=== PATIENT | female | born 1935 | race Caucasian/White ===

== ENCOUNTER 2019-08-31 11:21 | Day surgery (SDC) | payer MEDICARE, OTHER ==
[2019-08-30 11:23] LABS: BASOPHILS # (AUTO) 0.1 X10'3 (0-0.2); BASOPHILS % (AUTO) 0.4 % (0-1); EOSINOPHILS # (AUTO) 0.1 X10'3 (0-0.9); EOSINOPHILS % (AUTO) 0.3 % (0-6); HEMATOCRIT 41.5 % (35.0-45.0); HEMOGLOBIN 13.4 g/dl (12.0-16.0); LYMPHOCYTES # (AUTO) 7.1 X10'3 (1.1-4.8); LYMPHOCYTES % (AUTO) 47.4 % (21-51); MEAN CORPUSCULAR HEMOGLOBIN 29.5 PG (27.0-31.0); MEAN CORPUSCULAR HGB CONC 32.4 g/dL (33.0-36.5); MEAN CORPUSCULAR VOLUME 91.1 FL (78-98); MEAN PLATELET VOLUME 13.7 FL (7.4-10.4); MONOCYTES # (AUTO) 1.1 X10'3 (0-0.9); NEUTROPHILS # (AUTO) 6.8 X10'3 (1.8-7.7); NEUTROPHILS % (AUTO) 44.9 % (42-75); RED BLOOD COUNT 4.55 X10'6 (4.20-5.60); WHITE BLOOD COUNT 15.1 X10'3 (4.5-11.0)
[2019-08-30 11:35] LABS: ALBUMIN 3.3 G/DL (3.4-5.0); ANION GAP 7 (8-16); BLOOD UREA NITROGEN 24 MG/DL (7-18); CALCIUM 9.3 MG/DL (8.5-10.1); CHLORIDE 102 MMOL/L (99-107); CREATININE 1.09 MG/DL (0.40-0.90); GLUCOSE 78 MG/DL (70-104); POTASSIUM 3.4 MMOL/L (3.5-5.1); SODIUM 138 MMOL/L (135-145); TOTAL CARBON DIOXIDE 29.3 MMOL/L (24-32); eGFR 48 ML/MIN
[2019-08-30 11:44] LABS: LARGE PLATELETS FEW; PLATELET COUNT 134 X10'3 (140-440); PLATELET ESTIMATE NORMAL
[~2019-08-31] VITALS: Ht 175.3 cm; Wt 91.4 kg
[2019-08-31] VITALS (8 sets, daily range): BP systolic 131–167; BP diastolic 67–94
[2019-08-31] MEDS ORDERED: morphine 10mg/ml inj. IV ONE (11:45)
[2019-08-31] MEDS ORDERED: atropine 0.1mg/ml 10ml syringe IV ONE (11:45)
[2019-08-31] MEDS ORDERED: normal saline 1000ml 1,000 ML IV SCH (11:45)
[2019-08-31] MEDS ORDERED: amiodarone 150mg/dext, iso-os 100 ML IV ONE (11:45)
[2019-08-31] MEDS ORDERED: LORazepam 0.5 MG tablet PO ONE (11:45)
[2019-08-31] MEDS ORDERED: MIDAZolam 1mg/ml 10ml vial IV ONE (11:45)
[2019-08-31] MEDS ORDERED: METF500T PO (12:02)
[2019-08-31] MEDS ORDERED: ATOR40TA PO (12:02)
[2019-08-31] MEDS ORDERED: OMEP40CA13 PO (12:02)
[2019-08-31] MEDS ORDERED: TRIA1TAB3 PO (12:02)
[2019-08-31] MEDS ORDERED: NITR50CA PO (12:02)
[2019-08-31] MEDS ORDERED: ALLO100T PO (12:02)
[2019-08-31] MEDS ORDERED: APIX5TAB3 PO (12:02)
[2019-08-31] MEDS ORDERED: CARSR60C PO (12:02)
[2019-08-31] MEDS ORDERED: AMIO200T61 PO (12:02)
[2019-08-31] MEDS ORDERED: LEVO100T PO (12:02)
[2019-08-31] MEDS ORDERED: IBRU140C PO (12:02)
== END 2019-08-31 16:15 | disposition home or self-care (01) ==
LOC: SSTAY O 11:21
PROVIDERS: ATTEND Internal Medicine Cardiovascular Disease
DX: I48.19 Other persistent atrial fibrillation (principal); I10 Essential (primary) hypertension; E78.5 Hyperlipidemia, unspecified; E03.9 Hypothyroidism, unspecified; E11.9 Type 2 diabetes mellitus without complications; Z86.718 Personal history of other venous thrombosis and embolism; Z98.890 Other specified postprocedural states; Z79.01 Long term (current) use of anticoagulants; Z79.899 Other long term (current) drug therapy; Z87.891 Personal history of nicotine dependence; Z80.0 Family history of malignant neoplasm of digestive organs; Z82.3 Family history of stroke
CPT/HCPCS: 36415; 80048; 82948; 85025; 85610; 92960; 93005; 94760; J2250; J2270; J7030

== ENCOUNTER 2019-10-31 11:45 | Emergency (ER) | payer MEDICARE, OTHER ==
[~2019-10-31] VITALS: Ht 175.3 cm; Wt 91.8 kg
[~2019-10-31 11:45] MED LIST: ALLO100T PO; AMIO200T61 PO; APIX5TAB3 PO; ATOR40TA PO; CARSR60C PO; IBRU140C PO; LEVO100T PO; METF500T PO; NITR50CA PO; OMEP40CA13 PO; TRIA1TAB3 PO
[2019-10-31 12:01] VITALS: BP 128/77
[2019-10-31] MEDS ORDERED: sulfamethoxazole/trimethoprim DS (800/160mg) tablet PO ONE (12:35)
[2019-10-31] MEDS ORDERED: acetaminophen 325mg tablet PO ONE (12:35)
[2019-10-31] MEDS ORDERED: ondansetron 4mg rapidly disintigrating tab PO ONE (12:35)
--- NOTE | 2019-10-31 13:05 | NUR ---
US AT BEDSIDE
[2019-10-31] MEDS ORDERED: SULF1TAB49 PO (13:49)
--- NOTE | 2019-10-31 14:09 | NUR ---
pts daughter called to come milk pickup driver mark [phone]
== END 2019-10-31 14:09 | disposition home or self-care (01) ==
LOC: ER 11:46
DX: L03.116 Cellulitis of left lower limb (principal); Z79.01 Long term (current) use of anticoagulants; Z79.899 Other long term (current) drug therapy
CPT/HCPCS: 93971; 99284

== ENCOUNTER 2019-11-28 00:51 | Emergency (ER) | payer MEDICARE, OTHER ==
[~2019-11-28] VITALS: Ht 175.3 cm; Wt 91.0 kg
[2019-11-28 00:53] VITALS: BP 169/67
[2019-11-28] MEDS ORDERED: LIDOcaine 2% 10ml TOPICAL JELLY (Urojet) MM ONE (01:25)
--- NOTE | 2019-11-28 02:31 | NUR ---
Pt readied for digital extraction by provider. Urojet used in rectum for relief of discomfort.
--- NOTE | 2019-11-28 02:33 | NUR ---
Soap suds enema administered; pt sitting on commode.
[2019-11-28] MEDS ORDERED: BISA10SU60 RC (02:55)
[2019-11-28] MEDS ORDERED: POLY17PO10 PO (02:55)
[2019-11-28] MEDS ORDERED: polyethylene glycol 3350 17gm powd pack PO ONE (03:00)
[2019-11-28] MEDS ORDERED: polyethylene glycol 3350 17gm powd pack PO SCH (21:00)
== END 2019-11-28 03:38 | disposition home or self-care (01) ==
LOC: ER 00:51
DX: K59.00 Constipation, unspecified (principal); R11.0 Nausea; Z79.01 Long term (current) use of anticoagulants; Z79.899 Other long term (current) drug therapy
CPT/HCPCS: 99284

== ENCOUNTER 2019-12-07 10:14 | Day surgery (SDC) | payer MEDICARE, OTHER ==
[2019-12-06 13:48] LABS: BASOPHILS # (AUTO) 0.1 X10'3 (0-0.2); EOSINOPHILS # (AUTO) 0.1 X10'3 (0-0.9); EOSINOPHILS % (AUTO) 0.5 % (0-6); HEMATOCRIT 39.4 % (35.0-45.0); HEMOGLOBIN 12.8 g/dl (12.0-16.0); MEAN CORPUSCULAR HEMOGLOBIN 30.6 PG (27.0-31.0); MONOCYTES # (AUTO) 0.9 X10'3 (0-0.9)
[2019-12-06 13:50] LABS: LYMPHOCYTES # (AUTO) 4.6 X10'3 (1.1-4.8); LYMPHOCYTES % (AUTO) 41.7 % (21-51); MEAN CORPUSCULAR HGB CONC 32.5 g/dL (33.0-36.5); MEAN CORPUSCULAR VOLUME 94.3 FL (78-98); MEAN PLATELET VOLUME 13.4 FL (7.4-10.4); MONOCYTES % (AUTO) 7.8 % (2-12); NEUTROPHILS # (AUTO) 5.4 X10'3 (1.8-7.7); PLATELET COUNT 106 X10'3 (140-440); RED BLOOD COUNT 4.18 X10'6 (4.20-5.60); RED CELL DISTRIBUTION WIDTH 16.3 % (11.5-14.5)
[2019-12-06 13:57] LABS: ALBUMIN 3.3 G/DL (3.4-5.0); ANION GAP 10 (8-16); BLOOD UREA NITROGEN 21 MG/DL (7-18); BUN/CREATININE RATIO 18.9 (6.6-38.0); CALCIUM 9.5 MG/DL (8.5-10.1); CHLORIDE 103 MMOL/L (99-107); CREATININE 1.11 MG/DL (0.40-0.90); GLUCOSE 80 MG/DL (70-104); POTASSIUM 3.3 MMOL/L (3.5-5.1); SODIUM 142 MMOL/L (135-145); TOTAL CARBON DIOXIDE 29.3 MMOL/L (24-32); eGFR 47 ML/MIN
[2019-12-06 14:01] LABS: PARTIAL THROMBOPLASTIN TIME 24 SECONDS (22-32)
[2019-12-06 14:32] LABS: PLATELET ESTIMATE DECREASED
[2019-12-06 14:33] LABS: ANISOCYTOSIS 1+
[2019-12-06 14:34] LABS: LARGE PLATELETS FEW
[~2019-12-07] VITALS: Ht 175.3 cm; Wt 90.9 kg
[2019-12-07] VITALS (11 sets, daily range): BP systolic 119–167; BP diastolic 69–98
[~2019-12-07 10:14] MED LIST changes: +BISA10SU60 RC
[2019-12-07] MEDS ORDERED: cefazolin/dext.iso 2gm/50ml 50 ML IV SCH (10:40)
[2019-12-07] MEDS ORDERED: LINA145C PO (12:41)
[2019-12-07] MEDS ORDERED: FURO-150 PO (12:41)
[2019-12-07] MEDS ORDERED: midazolam 2 mg/2 ml injection ONE ×2 (13:53→15:07)
[2019-12-07] MEDS ORDERED: fentaNYL/PF 50MCG/1 ML 2ML syringe ONE ×2 (13:53→15:07)
[2019-12-07] MEDS ORDERED: LIDOcaine 1% W/epiNEPHrine 1:100,000 20ml vial ONE (13:53)
[2019-12-07] MEDS ORDERED: ceFAZolin 2gm in dextrose, iso 50 ML IV ONE (13:53)
[2019-12-07] MEDS ORDERED: ceFAZolin 1000mg inj ONE (13:53)
[2019-12-07] MEDS ORDERED: hydrALAZINE 20mg/ml inj. IV ONE (15:14)
[2019-12-07] MEDS ORDERED: FLU VACC QS2020-21(6MOS UP)/PF 60 MCG/0.5 ML SYRINGE IMVAC ONE (15:35)
[2019-12-07] MEDS ORDERED: HYDROcodone/acetaminophen 5mg/325mg tablet PO PRN (16:10)
[2019-12-07] MEDS ORDERED: HYDROcodone/acetaminophen 10/325mg tab PO PRN (16:10)
[2019-12-07] MEDS ORDERED: normal saline 1000ml 1,000 ML IV ONE (16:20)
[2019-12-07] MEDS ORDERED: vancomycin/NS 1 GM ADD-VANTAGE 250 ML X 1 DOSE IV ONE (16:20)
== END 2019-12-07 20:55 | disposition home or self-care (01) ==
LOC: SSTAY O 10:14
PROVIDERS: ATTEND Internal Medicine Cardiovascular Disease
DX: I49.5 Sick sinus syndrome (principal); I48.19 Other persistent atrial fibrillation; I10 Essential (primary) hypertension; E78.5 Hyperlipidemia, unspecified; Z23 Encounter for immunization; E11.9 Type 2 diabetes mellitus without complications; E03.9 Hypothyroidism, unspecified; Z79.899 Other long term (current) drug therapy; Z79.01 Long term (current) use of anticoagulants; Z85.6 Personal history of leukemia; Z86.718 Personal history of other venous thrombosis and embolism; Z98.890 Other specified postprocedural states; Z87.891 Personal history of nicotine dependence; Z80.0 Family history of malignant neoplasm of digestive organs; Z82.3 Family history of stroke; Z80.1 Family history of malignant neoplasm of trachea, bronchus and lung
CPT/HCPCS: 33208; 36415; 71046; 80048; 85025; 85610; 85730; 93005; 99152; 99153; C1785; C1894; C1898; G0008; J0360; J0690; J2250; J3010; J3370; J7030; Q2039; 85008; A4565; A4620; A6449

== ENCOUNTER 2020-03-28 14:54 | Emergency (ER) | payer MEDICARE, OTHER ==
[~2020-03-28] VITALS: Ht 175.3 cm; Wt 92.3 kg
[~2020-03-28 14:54] MED LIST changes: -BISA10SU60 RC; +FURO-150 PO; +LINA145C PO; -METF500T PO
[2020-03-28 19:24] VITALS: BP 167/88
== END 2020-03-28 19:26 | disposition home or self-care (01) ==
LOC: ER 14:54
DX: S81.002A Unspecified open wound, left knee, initial encounter (principal); M25.562 Pain in left knee; I10 Essential (primary) hypertension; J45.909 Unspecified asthma, uncomplicated; E11.9 Type 2 diabetes mellitus without complications; Z90.710 Acquired absence of both cervix and uterus; Z79.899 Other long term (current) drug therapy; W19.XXXA Unspecified fall, initial encounter; Y93.89 Activity, other specified; Y92.89 Other specified places as the place of occurrence of the external cause; Y99.8 Other external cause status
CPT/HCPCS: 70450; 73564; 99284

== ENCOUNTER 2020-04-12 05:20 | Emergency (ER) | payer MEDICARE, OTHER ==
[~2020-04-12] VITALS: Ht 175.3 cm; Wt 92.7 kg
--- NOTE | 2020-04-12 06:15 | NUR ---
Pt sitting up at edge of bed currently on phone updated daughter.
[2020-04-12] MEDS ORDERED: magnesium citrate 296ml oral solution PO ONE (06:45)
[2020-04-12 06:48] LABS: CLARITY,URINE CLOUDY (Clear); COLOR,URINE YELLOW (Yellow); GLUCOSE, URINE NEGATIVE (Neg); KETONES,URINE NEGATIVE (Neg); LEUKOCYTE ESTERASE ,URINE MODERATE (Neg); NITRITES, URINE NEGATIVE (Neg); OCCULT BLOOD,URINE LARGE (Neg); PH,URINE 6.5 (4.8-8.0); PROTEIN,URINE >=300 mg/dl (Neg); UROBILINOGEN,URINE 0.2 E.U/dL (0.2-1.0)
[2020-04-12 06:51] LABS: UA COLLECTION TYPE CLN CATCH MIDSTREAM
[2020-04-12 06:56] LABS: WBC,URINE TNTC /HPF (0-4)
[2020-04-12 06:57] LABS: BACTERIA,URINE 2+ /HPF (Neg); MUCUS STRANDS NONE SEEN /LPF (Neg); RBC,URINE 50-100 /HPF (0-2); SQUAMOUS EPITHELIAL CELL,UR FEW /LPF (FEW)
[2020-04-12 07:11] VITALS: BP 156/79
--- NOTE | 2020-04-12 07:13 | NUR ---
DR JAMES IN TO DISINPACTION, FLEET ENEMA AND MAG CITRATE
[2020-04-12] MEDS ORDERED: CEPH250T PO (08:03)
[2020-04-12] MEDS ORDERED: cephalexin 500mg capsule PO ONE (08:05)
== END 2020-04-12 08:26 | disposition home or self-care (01) ==
LOC: ER 05:20
DX: K56.41 Fecal impaction (principal); R30.0 Dysuria; I48.91 Unspecified atrial fibrillation; I10 Essential (primary) hypertension; J45.909 Unspecified asthma, uncomplicated; E11.9 Type 2 diabetes mellitus without complications; M10.9 Gout, unspecified; Z90.710 Acquired absence of both cervix and uterus; Z95.0 Presence of cardiac pacemaker; Z79.899 Other long term (current) drug therapy
CPT/HCPCS: 74018; 81001; 87077; 87088; 99284

== ENCOUNTER 2020-09-04 13:20 | Emergency (ER) | payer MEDICARE, OTHER ==
[~2020-09-04] VITALS: Ht 175.3 cm; Wt 90.9 kg
[~2020-09-04 13:20] MED LIST changes: +CEPH250T PO; -OMEP40CA13 PO; +OMEP40CA21 PO
[2020-09-04] MEDS ORDERED: magnesium citrate 296ml oral solution PO ONE (14:35)
[2020-09-04] MEDS ORDERED: normal saline 1000ML IV soln IVB ONE (14:35)
[2020-09-04 14:39] LABS: ALANINE AMINOTRANSFERASE 19 U/L (12-78); ALBUMIN 3.1 G/DL (3.4-5.0); ALBUMIN/GLOBULIN RATIO 0.9 (1.1-1.5); ALKALINE PHOSPHATASE 41 IU/L (46-116); ANION GAP 7 (8-16); ASPARTATE AMINO TRANSFERASE 19 U/L (10-37); BILIRUBIN,TOTAL 0.5 MG/DL (0.1-1.0); BLOOD UREA NITROGEN 20 MG/DL (7-18); BUN/CREATININE RATIO 18.9 (6.6-38.0); CALCIUM 8.6 MG/DL (8.5-10.1); CHLORIDE 105 MMOL/L (99-107); CREATININE 1.06 MG/DL (0.40-0.90); GLUCOSE 95 MG/DL (70-104); POTASSIUM 3.9 MMOL/L (3.5-5.1); SODIUM 141 MMOL/L (135-145); TOTAL CARBON DIOXIDE 28.7 MMOL/L (24-32); TOTAL PROTEIN 6.7 G/DL (6.4-8.2); eGFR 49 ML/MIN
[2020-09-04 14:42] LABS: BASOPHILS # (AUTO) 0.1 X10'3 (0-0.2); BASOPHILS % (AUTO) 0.5 % (0-1); EOSINOPHILS % (AUTO) 0.3 % (0-6); HEMOGLOBIN 12.9 g/dl (12.0-16.0); MONOCYTES # (AUTO) 1.2 X10'3 (0-0.9); NEUTROPHILS # (AUTO) 6.4 X10'3 (1.8-7.7); WHITE BLOOD COUNT 10.1 X10'3 (4.5-11.0)
[2020-09-04 14:45] LABS: HEMATOCRIT 39.9 % (35.0-45.0); LYMPHOCYTES # (AUTO) 2.3 X10'3 (1.1-4.8); LYMPHOCYTES % (AUTO) 23.3 % (21-51); MEAN CORPUSCULAR HEMOGLOBIN 30.8 PG (27.0-31.0); MEAN CORPUSCULAR HGB CONC 32.2 g/dL (33.0-36.5); MEAN CORPUSCULAR VOLUME 95.7 FL (78-98); MEAN PLATELET VOLUME 13.3 FL (7.4-10.4); MONOCYTES % (AUTO) 12.3 % (2-12); NEUTROPHILS % (AUTO) 63.6 % (42-75); RED BLOOD COUNT 4.18 X10'6 (4.20-5.60); RED CELL DISTRIBUTION WIDTH 16.6 % (11.5-14.5)
[2020-09-04 14:55] LABS: LIPASE 103 U/L (73-393); PARTIAL THROMBOPLASTIN TIME 26 SECONDS (22-32)
[2020-09-04 15:35] LABS: PLATELET COUNT 123 X10'3 (140-440)
[2020-09-04 15:42] LABS: GIANT PLATELET FEW; LARGE PLATELETS MODERATE; PLATELET ESTIMATE NORMAL
[2020-09-04 15:43] LABS: ANISOCYTOSIS 1+
[2020-09-04 15:45] LABS: ELLIPTOCYTES FEW
[2020-09-04 17:25] LABS: CLARITY,URINE CLEAR (Clear); COLOR,URINE YELLOW (Yellow); GLUCOSE, URINE NEGATIVE (Neg); KETONES,URINE NEGATIVE (Neg); LEUKOCYTE ESTERASE ,URINE NEGATIVE (Neg); NITRITES, URINE NEGATIVE (Neg); OCCULT BLOOD,URINE TRACE-INTACT (Neg); PH,URINE 5.5 (4.8-8.0); PROTEIN,URINE NEGATIVE (Neg); UROBILINOGEN,URINE 0.2 E.U/dL (0.2-1.0)
[2020-09-04 17:34] LABS: UA COLLECTION TYPE CLN CATCH MIDSTREAM
[2020-09-04 17:37] LABS: BACTERIA,URINE FEW /HPF (Neg); SQUAMOUS EPITHELIAL CELL,UR FEW /LPF (FEW); WBC,URINE 0-4 /HPF (0-4)
[2020-09-04] MEDS ORDERED: POLY119P2 PO (18:04)
[2020-09-04 18:34] VITALS: BP 158/75
== END 2020-09-04 18:37 | disposition home or self-care (01) ==
LOC: ER 13:20
DX: K59.00 Constipation, unspecified (principal); R11.0 Nausea; I48.91 Unspecified atrial fibrillation; I10 Essential (primary) hypertension; J45.909 Unspecified asthma, uncomplicated; E11.9 Type 2 diabetes mellitus without complications; M10.9 Gout, unspecified; Z90.710 Acquired absence of both cervix and uterus; Z95.0 Presence of cardiac pacemaker; Z85.6 Personal history of leukemia; Z79.899 Other long term (current) drug therapy
CPT/HCPCS: 36415; 74176; 80053; 81001; 83690; 85008; 85025; 85610; 85730; 99284; J7030

== ENCOUNTER 2020-09-16 13:58 | Emergency (ER) | payer MEDICARE, OTHER ==
[~2020-09-16] VITALS: Ht 175.3 cm; Wt 90.9 kg
[~2020-09-16 13:58] MED LIST changes: +POLY119P2 PO
[2020-09-16] MEDS ORDERED: dexamethasone inj 8 MG in normal saline 50ml IV soln 50 ML IV ONE (15:15)
[2020-09-16 15:31] LABS: BASOPHILS # (AUTO) 0.1 X10'3 (0-0.2); EOSINOPHILS % (AUTO) 0 % (0-6); HEMOGLOBIN 13.5 g/dl (12.0-16.0); MEAN PLATELET VOLUME 12.7 FL (7.4-10.4); MONOCYTES % (AUTO) 10.5 % (2-12); RED BLOOD COUNT 4.39 X10'6 (4.20-5.60)
[2020-09-16 15:32] LABS: BASOPHILS % (AUTO) 1.1 % (0-1); HEMATOCRIT 40.5 % (35.0-45.0); LYMPHOCYTES # (AUTO) 3.1 X10'3 (1.1-4.8); LYMPHOCYTES % (AUTO) 32.9 % (21-51); MEAN CORPUSCULAR HEMOGLOBIN 30.7 PG (27.0-31.0); MEAN CORPUSCULAR HGB CONC 33.3 g/dL (33.0-36.5); MEAN CORPUSCULAR VOLUME 92.3 FL (78-98); NEUTROPHILS # (AUTO) 5.3 X10'3 (1.8-7.7); NEUTROPHILS % (AUTO) 55.5 % (42-75); PLATELET COUNT 118 X10'3 (140-440); RED CELL DISTRIBUTION WIDTH 15.3 % (11.5-14.5); WHITE BLOOD COUNT 9.5 X10'3 (4.5-11.0)
[2020-09-16 15:43] LABS: LARGE PLATELETS MODERATE; PLATELET ESTIMATE DECREASED
[2020-09-16 15:46] LABS: ALANINE AMINOTRANSFERASE 110 U/L (12-78); ALBUMIN 3.1 G/DL (3.4-5.0); ALBUMIN/GLOBULIN RATIO 0.8 (1.1-1.5); ALKALINE PHOSPHATASE 41 IU/L (46-116); ANION GAP 9 (8-16); ASPARTATE AMINO TRANSFERASE 68 U/L (10-37); BILIRUBIN,TOTAL 0.5 MG/DL (0.1-1.0); BLOOD UREA NITROGEN 11 MG/DL (7-18); BUN/CREATININE RATIO 11.2 (6.6-38.0); C-REACTIVE PROTEIN 0.33 MG/DL (0.0-0.5); CALCIUM 8.7 MG/DL (8.5-10.1); CHLORIDE 103 MMOL/L (99-107); CREATININE 0.98 MG/DL (0.40-0.90); GLUCOSE 90 MG/DL (70-104); LACTATE DEHYDROGENASE 223 U/L (81-234); POTASSIUM 3.5 MMOL/L (3.5-5.1); SODIUM 140 MMOL/L (135-145); eGFR 54 ML/MIN
[2020-09-16 16:26] VITALS: BP 169/74
[2020-09-16] MEDS ORDERED: ONDA4TAB6 PO (17:16)
[2020-09-20] MEDS ORDERED: LEVO88TA7 PO (15:12)
[2020-09-20] MEDS ORDERED: FURO40TA4 PO (15:12)
[2020-09-20] MEDS ORDERED: OMEP-50 PO (15:12)
[2020-09-20] MEDS ORDERED: LEVO112T5 PO (15:12)
[2020-09-20] MEDS ORDERED: ONDA-103 PO (15:12)
[2020-09-20] MEDS ORDERED: IBUP-1985 PO (15:12)
[2020-09-20] MEDS ORDERED: AMIO200T27 PO (15:12)
[2020-09-20] MEDS ORDERED: ATOR40TA72 PO (15:12)
[2020-09-20] MEDS ORDERED: DILT-35 PO (15:12)
[2020-09-20] MEDS ORDERED: POTA10TA PO (15:12)
[2020-09-20] MEDS ORDERED: IBRU140C PO (15:12)
[2020-09-20] MEDS ORDERED: ALBU18HF2 PO (15:12)
[2020-09-20] MEDS ORDERED: NITR50CA PO (15:13)
[2020-09-20] MEDS ORDERED: APIX5TAB3 PO (23:50)
== END 2020-09-16 17:26 | disposition home or self-care (01) ==
LOC: ER 13:59
DX: U07.1 COVID-19 (principal); I48.91 Unspecified atrial fibrillation; I10 Essential (primary) hypertension; J45.909 Unspecified asthma, uncomplicated; E11.9 Type 2 diabetes mellitus without complications; Z90.710 Acquired absence of both cervix and uterus; Z79.899 Other long term (current) drug therapy
CPT/HCPCS: 36415; 71045; 80053; 83615; 84145; 84484; 85008; 85025; 85384; 86140; 87635; 96365; 99284; C9803; J1100